=== PATIENT | female | born 1935 | race Caucasian/White ===

== ENCOUNTER 2016-07-24 | Emergency (ER) | payer MEDICARE, BC ==
[~2016-07-24] MED LIST: ACTONEL35 MG; AMBIEN CR12.5 MG/BO; AMLODIPINE BESY10 M1 PO; ANTIVERT25 MG; ASPIRIN EC81 MG PO; ASPIRIN325 M3 PO; ATARAX25 MG PO; CATAPRES0.2 M1 PO; CLONIDINE PO; CYANOCOBAL1000 MCG/3 IM; DEMEDEX; FELODIPINE PO; FEROSUL325 M1 PO; LABETOLOL PO; LISINOPRIL20 MG; MACROBID 100 M100 M1 PO; MIRALAX17 G2 PO; NORCO 5-325 TA1 EACH PO; NORCO 5/3251 TA2 PO; PHENOBARBITAL15 MG PO; PHENOBARBITAL30 MG; PHENOBARBITAL32.4 M1 PO; PHENOBARBITAL32.4 MG PO; PLENDIL10 MG PO; QUETIAPINE PO; SENOKOT-S TABL1 EACH PO; SEROQUEL100 M2 PO; SEROQUEL25 M1 PO; TOPROL XL100 MG; TRANDATE PO; TRANDATE300 M1 PO; TYLENOL500 MG PO; ULTRAM50 M1 PO; VITAMIN B12; VITAMIN D-1000 UNIT/ PO; VITAMIN D1000 UNIT PO; VITAMIN D32000 UNI3 PO; XARELTO10 M1 PO; ZOFRAN8 MG PO; [UNRECOGNIZED DRUG - OTHER] IM
== END 2016-07-24 23:54 ==
DX: S52.501A Unspecified fracture of the lower end of right radius, initial encounter for closed fracture (principal); F03.90 Unspecified dementia, unspecified severity, without behavioral disturbance, psychotic disturbance, mood disturbance, and anxiety; Z90.49 Acquired absence of other specified parts of digestive tract; Z88.2 Allergy status to sulfonamides; Z79.899 Other long term (current) drug therapy; W19.XXXA Unspecified fall, initial encounter

== ENCOUNTER 2016-08-15 12:39 | Inpatient (IN) | payer MEDICARE, BC ==
[2016-08-15] MEDS ORDERED: ASPIRIN EC81 MG PO (12:57)
[2016-08-15] MEDS ORDERED: NORVASC5 M2 PO (12:57)
[2016-08-15] MEDS ORDERED: IBUPROFEN400 M1 PO (12:58)
[2016-08-15] MEDS ORDERED: LABETALOL HCL300 M1 PO (12:58)
[2016-08-15] MEDS ORDERED: CATAPRES0.2 M1 PO (12:58)
[2016-08-15] MEDS ORDERED: KEPPRA250 M1 PO (12:59)
[2016-08-15] MEDS ORDERED: MAPAP500 M3 PO (13:00)
[2016-08-15] MEDS ORDERED: PHENOBARBITAL32.4 M1 PO ×2 (13:00→13:01)
[2016-08-15] MEDS ORDERED: SEROQUEL100 M2 PO (13:01)
[2016-08-15] MEDS ORDERED: SEROQUEL25 M2 PO (13:02)
[2016-08-15] MEDS ORDERED: TRIAMCINOLONE A15 G2 TP (13:02)
[2016-08-15] MEDS ORDERED: VITAMIN D32000 UNI2 PO (13:02)
[2016-08-15 14:52] LABS: HCT-HEMATOCRIT 34.1 % (34.0-49.0); HGB-HEMOGLOBIN 11.4 gm/dl (12.0-15.5); IMMATURE GRANULOCYTES ABSOLUTE 0.02 tho/cmm (0-0.03); IMMATURE GRANULOCYTES PERCENT 0.3 % (0-0.3); LYMPH % 12.8 % (20-45); LYMPH ABSOLUTE COUNT 0.9 tho/cmm (0.8-4.5); MCHC MEAN CORPUSCULAR HGB CONC 33.4 % (32.0-36.0); MCV (MEAN CELL VOLUME) 83.8 fl (82.0-96.0); MEAN PLATELET VOLUME 10.1 cmc (9.4-12.4); MONOCYTE ABSOLUTE COUNT 0.7 tho/cmm (0.0-1.2); NEUTROPHIL ABSOLUTE COUNT 5.3 tho/cmm (1.6-8.0); NEUTROPHIL-AUTOMATED 5.3 tho/cmm (1.6-8.0); NEUTROPHILS % 76.9 % (40-80); PLATELET COUNT 229 tho/cmm (150-450); RED BLOOD COUNT 4.07 mil/cmm (4.00-5.20); WHITE BLOOD COUNT 6.9 tho/cmm (4.0-10.0)
[2016-08-15 15:02] LABS: ANION GAP 14 mmol/L (0-20); BLOOD UREA NITROGEN 16 mg/dl (6-24); CALCIUM 9.2 mg/dl (8.5-10.5); CARBON DIOXIDE-VENOUS 24 mmol/L (22-32); CHLORIDE 107 mmol/l (96-110); CREATININE 0.89 mg/dl (0.50-1.10); GLUCOSE 128 mg/dL (70-110); POTASSIUM 3.7 mmol/L (3.7-5.1); SODIUM 141 mmol/L (135-145); eGFR VALUE FOR BLACK 71 mL/Min
[2016-08-15 15:54] LABS: PROTHROMBIN TIME 11.9 SECONDS (9.0-13.6)
[2016-08-15 20:28] LABS: URINE BILIRUBIN NEGATIVE (NEG); URINE BLOOD MODERATE (NEG); URINE GLUCOSE (UA) NEGATIVE (NEG); URINE KETONE NEGATIVE (NEG); URINE LEUKOCYTE ESTERASE POSITIVE (NEG); URINE NITRITE NEGATIVE (NEG); URINE PROTEIN NEGATIVE (NEG); URINE SPECIFIC GRAVITY 1.005 (1.003-1.030)
[2016-08-15 20:29] LABS: URINE APPEARANCE CLOUDY; URINE COLOR PALE YELLOW
[2016-08-15 20:40] LABS: URINE BACTERIA 4+; URINE EPITHELIAL CELLS 0-3 /[HPF] (0-10); URINE RBC 0-1 /[HPF] (0-5)
[2016-08-17 07:36] LABS: BASO % 0.1 % (0-2); HCT-HEMATOCRIT 27.3 % (34.0-49.0); LYMPH % 14.2 % (20-45); LYMPH ABSOLUTE COUNT 1.1 tho/cmm (0.8-4.5); MCH (MEAN CORPUSCULAR HGB) 28.4 pg (28.0-32.0); MCV (MEAN CELL VOLUME) 86.1 fl (82.0-96.0); MONO % 13.4 % (0-12); MONOCYTE ABSOLUTE COUNT 1.1 tho/cmm (0.0-1.2); NEUTROPHIL ABSOLUTE COUNT 5.7 tho/cmm (1.6-8.0); NEUTROPHIL-AUTOMATED 5.7 tho/cmm (1.6-8.0); NEUTROPHILS % 72.3 % (40-80); PLATELET COUNT 189 tho/cmm (150-450); RED BLOOD COUNT 3.17 mil/cmm (4.00-5.20); RED CELL DISTRIBUTION WIDTH 13.8 % (12.4-16.4); WHITE BLOOD COUNT 7.9 tho/cmm (4.0-10.0)
== END 2016-08-18 15:29 | DRG 470 ==
LOC: EDMED 12:39 → EMR2 15:45 → 5EB 17:10 → ORE 08-16 17:05 → PACU 08-16 19:01 → 5EB 08-16 20:21
PROVIDERS: Family Medicine; Nurse Practitioner Acute Care; Nurse Practitioner Family; Physician Assistant; ADMIT Orthopaedic Surgery Hand Surgery
PROC: 0SRB029 Replacement of Left Hip Joint with Metal on Polyethylene Synthetic Substitute, Cemented, Open Approach (ICD-10-PCS; principal; 2016-08-15)
DX: S72.012A Unspecified intracapsular fracture of left femur, initial encounter for closed fracture (principal); G30.9 Alzheimer's disease, unspecified; G40.909 Epilepsy, unspecified, not intractable, without status epilepticus; F02.80 Dementia in other diseases classified elsewhere, unspecified severity, without behavioral disturbance, psychotic disturbance, mood disturbance, and anxiety; I10 Essential (primary) hypertension; Z91.81 History of falling; E21.0 Primary hyperparathyroidism; W19.XXXA Unspecified fall, initial encounter; Z79.82 Long term (current) use of aspirin; Z66 Do not resuscitate; F41.9 Anxiety disorder, unspecified; Y92.019 Unspecified place in single-family (private) house as the place of occurrence of the external cause; Z86.718 Personal history of other venous thrombosis and embolism
CPT/HCPCS: C1776; J0171; J0690; J1885; J2270; J2795

== ENCOUNTER 2016-12-01 10:12 | Day surgery (SDC) | payer MEDICARE, BC ==
[~2016-12-01] VITALS: Ht 165.1 cm; Wt 60.7 kg
[~2016-12-01 10:12] MED LIST changes: +IBUPROFEN400 M1 PO; +KEPPRA250 M1 PO; +LABETALOL HCL300 M1 PO; +MAPAP500 M3 PO; +NORVASC5 M2 PO; +SEROQUEL25 M2 PO; +TRIAMCINOLONE A15 G2 TP; +VITAMIN D32000 UNI2 PO
[2016-12-01] MEDS ORDERED: LASIX20 M1 PO (11:21)
[2016-12-01] MEDS ORDERED: POTASSIUM CHLO10 ME2 PO (11:21)
[2016-12-01] MEDS ORDERED: DEPAKOTE ER250 M1 PO (11:26)
[2016-12-01] MEDS ORDERED: IMODIUM A-D2 M4 (11:27)
[2016-12-01 11:46] LABS: BASO % 0.1 % (0-2); HCT-HEMATOCRIT 32.9 % (34.0-49.0); IMMATURE GRANULOCYTES ABSOLUTE 0.01 tho/cmm (0-0.03); IMMATURE GRANULOCYTES PERCENT 0.1 % (0-0.3); LYMPH % 24.2 % (20-45); LYMPH ABSOLUTE COUNT 1.6 tho/cmm (0.8-4.5); MCH (MEAN CORPUSCULAR HGB) 28.6 pg (28.0-32.0); MCHC MEAN CORPUSCULAR HGB CONC 33.4 % (32.0-36.0); MCV (MEAN CELL VOLUME) 85.7 fl (82.0-96.0); MEAN PLATELET VOLUME 9.5 cmc (9.4-12.4); MONO % 11.7 % (0-12); MONOCYTE ABSOLUTE COUNT 0.8 tho/cmm (0.0-1.2); NEUTROPHIL ABSOLUTE COUNT 4.3 tho/cmm (1.6-8.0); NEUTROPHIL-AUTOMATED 4.3 tho/cmm (1.6-8.0); NEUTROPHILS % 63.9 % (40-80); PLATELET COUNT 290 tho/cmm (150-450); RED BLOOD COUNT 3.84 mil/cmm (4.00-5.20); RED CELL DISTRIBUTION WIDTH 14.3 % (12.4-16.4); WHITE BLOOD COUNT 6.8 tho/cmm (4.0-10.0)
[2016-12-01 11:59] LABS: ANION GAP 14 mmol/L (0-20); BLOOD UREA NITROGEN 14 mg/dl (6-24); CALCIUM 9.3 mg/dl (8.5-10.5); CARBON DIOXIDE-VENOUS 25 mmol/L (22-32); CHLORIDE 105 mmol/l (96-110); CREATININE 0.94 mg/dl (0.50-1.10); GLUCOSE 102 mg/dL (70-110); POTASSIUM 3.8 mmol/L (3.7-5.1); SODIUM 140 mmol/L (135-145); eGFR VALUE FOR BLACK 67 mL/Min
== END 2016-12-02 12:26 | disposition other institution (70) ==
LOC: SRG 10:12 → SHSB 10:12 → ORE 12:15 → PACU 13:34 → 5EA 15:20 → 5EB 17:45 → SRG 12-02 12:26
PROVIDERS: Anesthesiology
PROC: 0QSD04Z Reposition Right Patella with Internal Fixation Device, Open Approach (ICD-10-PCS; principal; 2016-12-01)
DX: S82.031A Displaced transverse fracture of right patella, initial encounter for closed fracture (principal); I10 Essential (primary) hypertension; F41.9 Anxiety disorder, unspecified; Z88.8 Allergy status to other drugs, medicaments and biological substances; Z79.899 Other long term (current) drug therapy; Z98.890 Other specified postprocedural states; W19.XXXA Unspecified fall, initial encounter
CPT/HCPCS: C1713; C1769; G8978-GP-CK; G8979-GP-CK; G8980-GP-CK; J0171; J0360; J0690; J1885; J2270; J2795; J3010